=== PATIENT | female | born 1990 | race Caucasian/White ===

== ENCOUNTER 2024-03-04 09:39 | Outpatient (OUT) | payer BC, SELFPAY ==
--- NOTE | 2024-03-04 09:48 | US_ITS ---
The [address] [address] Patient Name: ROSY ROMAN MRN: [id number] date: 1990 Sex: F Assigned Patient Location: US Current Patient Location: Accession/Order Number: [id number] Exam Date: 03/04/2024 09:50 Report Date: 03/05/2024 07:38 At the request of: NATI LOPEZ Procedure: US thyroid EXAMINATION: US thyroid HISTORY: enlargement of thyroid E04.9 COMPARISON: 02/21/2023 TECHNIQUE: Sonographic images of the thyroid gland were obtained. FINDINGS: The right thyroid lobe is mildly enlarged in size heterogeneous in echotexture measuring 5.7 x 2.0 x 1.8 cm. Single focal nodule. The thyroid isthmus is thickened measuring up to 6.9 mm. No focal nodule. The left thyroid lobe is mildly enlarged in size, heterogeneous echotexture measuring 5.8 x 2.0 x 1.6 cm. 2 focal nodules. The 2 most suspicious nodules: Nodule 1: Right thyroid lobe. 1.6 x 1.2 x 1.4 cm. Solid, hypoechoic, tall, smooth margins, no calcifications. TR 4 Nodule 2: Left thyroid lobe. 1.7 x 1.0 x 0.9 cm. Solid, hypoechoic, wide, smooth margins, no calcifications. TR 3 US/US thyroid IMPRESSION: Stable bilateral thyroid nodules TI-RADS: The [employer] TI-RADS committee's white paper recommendations for thyroid lesions classified as TR4 (moderately suspicious) are listed below: > 1.0 cm. Follow-up ultrasound in 1, 2, 3, and 5 years. > 1.5 cm. FNA. J. Am Ron Radiol 2017;14:587-595. Electronically authenticated by: JENNA ELDER Date: 03/05/2024 07:38
== END 2024-03-04 09:40 | disposition home or self-care (01) ==
LOC: US 09:44
PROVIDERS: PCP Nurse Practitioner; Visit Provider Nurse Practitioner
DX: E04.9 Nontoxic goiter, unspecified (principal); E04.1 Nontoxic single thyroid nodule
CPT/HCPCS: 76536

== ENCOUNTER 2024-12-17 09:00 | Outpatient (OUT) | payer BC, SELFPAY ==
--- OUTSIDE RECORDS SUMMARY | 2024-12-17 09:16 | XMS_ITS | CCD ---
Author Organization [facility] Team Providers Care Dye Colorist Formulator Name Role Phone MORIS ROCHA Admitting Unavailable MORIS ROCHA Attending Unavailable MORIS ROCHA Primary Care Unavailable MORIS ROCHA Consulting Unavailable DR ARETHA STAPLES Consulting Unavailable Pedro Pablo Lara MD Primary Care Provider Aj SIGNAL INTEGRITY ENGINEER, Ale Unavailable ALE ROCHA Attending Unavailable ALE ROCHA Attending Unavailable Allergies Allergy Classification Reported Allergen(s) Allergy Type Date of Onset Reaction(s) Facility (1 source) Penicillins Drug allergy (disorder) [facility] Repository (3 sources) Penicillins Drug Allergy 10-10-2023 Unknown [facility] Medications Current Medications Medication Drug Class(es) Dates Sig (Normalized) Sig (Original) Tirzepatide-Weight Management (Zepbound) 2.5 MG/0.5ML solution auto-injector (4 sources) Start: 12-11-2024 End: 01-08-2025 Tirzepatide-Weight Management (Zepbound) 2.5 MG/0.5ML solution auto-injector Indications: Morbid (severe) obesity due to excess calories (CMS/HCC) , BMI 45.0-49.9, adult (CMS/HCC) Inject 2.5 mg under the skin every 7 (seven) days for 28 days 2 mL 12/11/2024 01/08/2025 Active End: 12-11-2024 Tirzepatide-Weight Managemen t (Zepbound) 2.5 MG/0.5ML solution auto-injector Inject 2.5 mg under the skin every 7 (seven) days 12/11/2024 Discontinued (Reorder) Completed/Discontinued Medications Medication Drug Class(es) Dates Sig (Normalized) Sig (Original) ferrous sulfate 325 mg delayed release oral tablet (3 sources) End: 12-11-2024 take 1 tablet by mouth in the morning ferrous sulfate 325 (65 Fe) MG EC tablet Take 1 tablet by mouth in the morning and 1 tablet before bedtime. Do not crush, chew, or split. . 12/11/2024 Discontinued (Therapy completed) Wegovy 2.4 MG/0.75ML solution auto-injector (2 sources) Start: 06-02-2024 End: 12-11-2024 Wegovy 2.4 MG/0.75ML solution auto-injector Inject 2.4 mg as directed every 7 (seven) days 06/02/2024 12/11/2024 Discontinued (Therapy completed) Problems Active Problems Problem Classification Problem Date Documented Da te Episodic/Chronic Anxiety disorders (3 sources) Mixed anxiety and depressive disorder; Translations: [Anxiety disorder, unspecified] Onset: 10-11-2023 10-11-2023 Chronic Deficiency and other anemia (1 source) Iron deficiency anemia, unspecified; Translations: [IRON DEFICIENCY ANEMIA UNSPECIFIED] Onset: 02-26-2023 Episodic Deficiency and other anemia (5 sources) Iron deficiency anemia; Translations: [Iron deficiency anemia, unspecified] Onset: 2024 2024 Episodic Diabetes mellitus without complication (9 sources) Prediabetes; Translations: [Prediabetes] Onset: 02-21-2023 Episodic Menstrual disorders (6 sources) Break-through bleeding; Translations: [Excessive and frequent menstruation with irregular cycle] Onset: 10-11-2023 10-11-2023 Chronic Other female genital disorders (3 sources) Abnormal uterine bleeding; Translations: [Abnormal uterine and vaginal bleeding, unspecified] Onset: 10-11-2023 10-11-2023 Chronic Other nutritional; endocrine; and metabolic disorders (1 source) Morbid (severe) obesity due to excess calories; Translations: [MORBID SEVERE OBES D/T EXCESS KYLE] Onset: 02-26-2023 Chronic Other nutritional; endocrine; and metabolic disorders (1 source) Body mass index (BMI) 40.0-44.9, adult; Translations: [BODY MASS INDEX BMI 40.0-44.9 ADULT] Onset: 02-26-2023 Chronic Other nutritional; endocrine; and metabolic disorders (14 sources) Body mass index 40+ - severely obese; Translations: [Morbid (severe) obesity due to excess calories] Onset: 10-11-2023 Resolved: 12-11-2024 10-11-2023 Chronic Other nutritional; endocrine; and metabolic disorders (7 sources) Obesity caused by energy imbalance; Translations: [Morbid (severe) obesity due to excess calories] Onset: 06-06-2024 06-06-2024 Chronic Other nutritional; endocrine; and metabolic disorders (1 source) Abnormal weight gain; Translations: [ABNORMAL WEIGHT GAIN] Onset: 02-26-2023 Episodic Other screening for suspected conditions (not mental disorders or infectious disease) (3 sources) Endometrium thickened; Translations: [Abnormal findings on diagnostic imaging of other specified body structures] Onset: 10-11-2023 10-11-2023 Chronic Thyroid disorders (11 sources) Nontoxic single thyroid nodule; Translations: [Goiter] Onset: 02-26-2023 10-11-2023 Chronic Past or Other Problems Problem Classification Problem Date Documented Da te Episodic/Chronic Deficiency and other anemia (3 sources) Anemia; Translations: [Anemia, unspecified] Onset: 10-11-2023 Resolved: 2024 2024 Episodic Essential hypertension (4 sources) Essential (primary) hypertension; Translations: [Hypertensive disorder] Onset: 02-26-2023 Resolved: 2024 2024 Chronic Other nutritional; endocrine; and metabolic disorders (3 sources) Abnormal weight gain; Translations: [Abnormal weight gain] Onset: 10-11-2023 10-11-2023 Episodic Ovarian cyst (6 sources) Complex cyst of left ovary; Translations: [Other ovarian cyst, left side] Onset: 10-11-2023 10-11-2023 Episodic Results Test Name Value Interpretation Reference Range Facil ity CBC AUTO DIFFon 02-21-2023 BASO # 0.0 103/ul Normal 0.0-0.1 [facility] Comment on above: Performed By: #### C BC #### [facility] [address] [address] [address] Lynne Ospina Basophils/100 WBC (Bld) 0.3 % Normal 0.2-2.0 [facility] Comment on above: Performed By: #### C BC #### [facility] [address] [address] [address] Lynne Ospina EO # 0.2 103/ul Normal 0.0-0.7 [facility] Comment on above: Performed By: #### C BC #### [facility] [address] [place] [address] Dr. Lynne Ospina Eosinophils/100 WBC (Bld) 2.0 % Normal 0.9-7.0 [facility] Comment on above: Performed By: #### C BC #### [facility] [address] [place] [address] Dr. Lynne Ospina Erythrocyte distribution width (RBC) [Ratio] 17.0 % Critically high 11.0-15.0 [facility] Comment on above: Performed By: #### C BC #### [facility] [address] [place] [address] Dr. Lynne Ospina Hematocrit (Bld) [Volume fraction] 38.5 % Normal 36.0-48.0 [facility] Comment on above: Performed By: #### C BC #### [facility] [address] [place] [address] Dr. Lynne Ospina Hemoglobin (Bld) [Mass/Vol] 11.7 g/dL Critically low 12.0-16.0 [facility] Comment on above: Performed By: #### C BC #### [facility] [address] [place] [address] Dr. Lynne Ospina IG # 0.04 10e3/ul Critically high 0.00-0.03 [facility] Comment on above: Performed By: #### C BC #### [facility] [address] [place] [address] Dr. Lynne Ospina IG % 0.4 % Normal 0.0-0.5 [facility] Comment on above: Performed By: #### C BC #### [facility] [address] [place] [address] Dr. Lynne Ospina LYMPH # 2.6 103/ul Normal 1.2-3.8 [facility] Comment on above: Performed By: #### C BC #### [facility] [address] [place] [address] Dr. Lynne Ospina Lymphocytes/100 WBC (Bld) 26.7 % Normal 20.5-60.0 [facility] Comment on above: Performed By: #### C BC #### [facility] [address] [place] [address] Dr. Lynne Ospina MANUAL DIFF REQ NO Normal [facility] Comment on above: Performed By: #### C BC #### [facility] [address] [place] [address] Dr. Lynne Ospina MCH (RBC) [Entitic mass] 23.0 pg Critically low 26.7-34.0 [facility] Comment on above: Performed By: #### C BC #### [facility] [address] [place] [address] Dr. Lynne Ospina MCHC (RBC) [Mass/Vol] 30.4 g/dL Normal 29.9-35.2 [facility] Comment on above: Performed By: #### C BC #### [facility] [address] [place] [address] Dr. Lynne Ospina MCV (RBC) [Entitic vol] 75.6 fL Critically low 81.0-99.0 [facility] Comment on above: Performed By: #### C BC #### [facility] [address] [place] [address] Dr. Lynne Ospina MONO # 0.6 103/ul Normal 0.3-0.8 [facility] Comment on above: Performed By: #### C BC #### [facility] [address] [place] [address] Dr. Lynne Ospina Monocytes/100 WBC (Bld) 6.6 % Normal 1.7-12.0 [facility] Comment on above: Performed By: #### C BC #### [facility] [address] [place] [address] Dr. Lynne Ospina NEUT # 6.2 103/ul Normal 1.4-6.5 [facility] Comment on above: Performed By: #### C BC #### [facility] [address] [address] [address] Lynne Ospina Neutrophils/100 WBC (Bld) 64.0 % Normal 43.0-75.0 [facility] Comment on above: Performed By: #### C BC #### [facility] [address] [address] [address] Lynne Ospina PLT 104 103/ul Critically low 150-450 [facility] Comment on above: Performed By: #### C BC #### [facility] [address] [address] [address] Lynne Ospina RBC 5.09 106/ul Normal 4.20-5.40 [facility] Comment on above: Performed By: #### C BC #### [facility] [address] [place] [address] Dr. Lynne Ospina WBC 9.7 103/ul Normal 4.0-11.0 [facility] Comment on above: Performed By: #### C BC #### [facility] [address] [place] [address] Dr. Lynne Ospina FERRITINon 02-21-2023 Ferritin [Mass/Vol] 18.0 ng/mL Normal 6.2-137.0 [facility] Comment on above: Performed By: #### I MEDINA ISLAS, FT4 #### [facility] [address] [place] [address] Dr. Lynne Ospina FREE T4on 02-21-2023 Free T4 [Mass/Vol] 0.86 ng/dL Normal 0.76-1.46 [facility] Comment on above: Performed By: #### I MEDINA ISLAS FT4 #### [facility] [address] [place] [address] Dr. Lynne Ospina GLYCOHEMOGLOBIN A1Con 2022 ADA RECOMMENDATION SEE BELOW Normal [facility] Comment on above: Result Comment: ADA RECOMMENDED LIMIT 4.0 - 6.0 ADA THERAPEUTIC TARGET < 7.0 ACTION SUGGESTED > 7.0 Performed By: #### A 1C #### [facility] [address] [place] [address] Dr. Lynne Ospina Glucose [Mass/Vol] 108 mg/dL Normal [facility] Comment on above: Performed By: #### A 1C #### [facility] [address] [place] [address] Dr. Lynne Ospina HbA1c (Bld) [Mass fraction] 5.4 % Normal 4.5-6.2 [facility] Comment on above: Performed By: #### A 1C #### [facility] [address] [place] [address] Dr. Lynne Ospina IRONon 02-21-2023 Iron [Mass/Vol] 22.0 ug/dL Critically low 50.0-170.0 [facility] Comment on above: Performed By: #### I MEDINA ISLAS, FT4 #### [facility] [address] [place] [address] Dr. Lynne Ospina LIPID PROFILEon 02-21-2023 CHOL-HDL RATIO NORM SEE BELOW Normal [facility] Comment on above: Result Comment: 3.3 - 4.4 LOW RISK 4.4 - 7.1 AVERAGE RISK 7.1 - 11.0 MODERATE RISK >11.0 HIGH RISK Performed By: #### C MP, LIPID, TSH #### [facility] [address] [place] [address] Dr. Lynne Ospina Cholesterol [Mass/Vol] 200 mg/dL Normal <=200 [facility] Comment on above: Performed By: #### C MP, LIPID, TSH #### [facility] [address] [place] [address] Dr. Lynne Ospina Cholesterol in HDL [Mass/Vol] 43 mg/dL Normal 40-60 [facility] Comment on above: Performed By: #### C MP, LIPID, TSH #### [facility] [address] [place] [address] Dr. Lynne Ospina Cholesterol in LDL [Mass/Vol] 137.4 mg/dL Normal [facility] Comment on above: Performed By: #### C MP, LIPID, TSH #### [facility] [address] [place] [address] Dr. Lynne Ospina Cholesterol.total/Cho lesterol in HDL [Mass ratio] 4.7 {ratio} Normal [facility] Comment on above: Performed By: #### C MP, LIPID, TSH #### [facility] [address] [address] [address] Lynne Ospina HDL NORMAL > or = 60 mg/dl - LOW CARDIOVASCULAR RISK <40 mg/dl - HIGH CARDIOVASCULAR RISK Normal [facility] Comment on above: Performed By: #### C MP, LIPID, TSH #### [facility] [address] [address] [address] Lynne Ospina LDL CALC NORMAL SEE BELOW Normal [facility] Comment on above: Result Comment: <100 mg/dl OPTIMAL 100 - 129 mg/dl NEAR OR ABOVE OPTIMAL 130 - 159 mg/dl BORDERLINE HIGH 160 - 189 mg/dl HIGH >190 mg/dl VERY HIGH Performed By: #### C MP, LIPID, TSH #### [facility] [address] [address] [address] Lynne Ospina Triglyceride [Mass/Vol] 98 mg/dL Normal <=150 [facility] Comment on above: Performed By: #### C MP, LIPID, TSH #### [facility] [address] [address] [address] Lynne Ospina VLDL CALC 19.6 mg/dL Normal [facility] Comment on above: Performed By: #### C MP, LIPID, TSH #### [facility] [address] [address] [address] Lynne Ospina PROF 14(COMP METB)on 023 Albumin [Mass/Vol] 3.3 g/dL Critically low 3.4-5.0 [facility] Comment on above: Performed By: #### C MP, LIPID, TSH #### [facility] [address] [address] [address] Lynne Ospina Albumin/Globulin [Mass ratio] 0.7 {ratio} Normal [facility] Comment on above: Performed By: #### C MP, LIPID, TSH #### [facility] [address] [address] [address] Lynne Ospina ALP [Catalytic activity/Vol] 76 U/L Normal 46-116 [facility] Comment on above: Performed By: #### C MP, LIPID, TSH #### [facility] [address] [address] [address] Lynne Ospina ALT [Catalytic activity/Vol] 27 U/L Normal 14-59 [facility] Comment on above: Performed By: #### C MP, LIPID, TSH #### [facility] [address] [address] [address] Lynne Ospina Anion gap [Moles/Vol] 10.6 mmol/L Normal [facility] Comment on above: Performed By: #### C MP, LIPID, TSH #### [facility] [address] [address] [address] Lynne Ospina AST [Catalytic activity/Vol] 9 U/L Critically low 15-37 [facility] Comment on above: Performed By: #### C MP, LIPID, TSH #### [facility] [address] [address] [address] Lynne Ospina Bilirubin [Mass/Vol] 0.3 mg/dL Normal 0.2-1.0 [facility] Comment on above: Performed By: #### C MP, LIPID, TSH #### [facility] [address] [address] [address] Lynne Ospina Calcium [Mass/Vol] 9.1 mg/dL Normal 8.5-10.1 [facility] Comment on above: Performed By: #### C MP, LIPID, TSH #### [facility] [address] [address] [address] Lynne Ospina Chloride [Moles/Vol] 103 mmol/L Normal 98-107 [facility] Comment on above: Performed By: #### C MP, LIPID, TSH #### [facility] [address] [address] [address] Lynne Ospina CO2 [Moles/Vol] 27.0 mmol/L Normal 21.0-32.0 [facility] Comment on above: Performed By: #### C MP, LIPID, TSH #### [facility] [address] [address] [address] Lynne Ospina Creatinine [Mass/Vol] 0.79 mg/dL Normal 0.55-1.02 [facility] Comment on above: Performed By: #### C MP, LIPID, TSH #### [facility] [address] [place] [address] Dr. Lynne Ospina EGFR-AF UZBEK >60 Normal >=60 [facility] Comment on above: Performed By: #### C MP, LIPID, TSH #### [facility] [address] [address] [address] Lynne Ospina EGFR-NON AF UZBEK >60 Normal >=60 [facility] Comment on above: Performed By: #### C MP, LIPID, TSH #### [facility] [address] [place] [address] Dr. Lynne Ospina Globulin (S) [Mass/Vol] 4.6 g/dL Normal [facility] Comment on above: Performed By: #### C MP, LIPID, TSH #### [facility] [address] [place] [address] Dr. Lynne Ospina Glucose [Mass/Vol] 102 mg/dL Normal 74-106 [facility] Comment on above: Performed By: #### C MP, LIPID, TSH #### [facility] [address] [place] [address] Dr. Lynne Ospina Potassium [Moles/Vol] 4.6 mmol/L Normal 3.5-5.1 [facility] Comment on above: Performed By: #### C MP, LIPID, TSH #### [facility] [address] [place] [address] Dr. Lynne Ospina Protein [Mass/Vol] 7.9 g/dL Normal 6.4-8.2 [facility] Comment on above: Performed By: #### C MP, LIPID, TSH #### [facility] [address] [place] [address] Dr. Lynne Ospina Sodium [Moles/Vol] 136 mmol/L Normal 136-145 [facility] Comment on above: Performed By: #### C MP, LIPID, TSH #### [facility] [address] [place] [address] Dr. Lynne Ospina Urea nitrogen [Mass/Vol] 10.0 mg/dL Normal 7.0-18.0 [facility] Comment on above: Performed By: #### C MP, LIPID, TSH #### [facility] [address] [place] [address] Dr. Lynne Ospina Urea nitrogen/Creatinine [Mass ratio] 12.7 mg/mg Normal [facility] Comment on above: Performed By: #### C MP, LIPID, TSH #### [facility] [address] [address] [address] Lynne Ospina TSHon 02-21-2023 TSH 1.370 uIU/mL Normal 0.358-3.740 [facility] Comment on above: Performed By: #### C MP, LIPID, TSH #### [facility] [address] [place] [address] Dr. Lynne Ospina UA RANDOM W/MICROSCOPICon BACTERIA TRACE Abnormal NONE SEEN [facility] Comment on above: Performed By: #### U AMIC #### [facility] [address] [place] [address] Dr. Lynne Ospina Bilirubin Ql (U) Negative Normal NEGATIVE [facility] Comment on above: Performed By: #### U AMIC #### [facility] [address] [place] [address] Dr. Lynne Ospina CAST NONE SEEN Normal NONE SEEN [facility] Comment on above: Performed By: #### U AMIC #### [facility] [address] [place] [address] Dr. Lynne Ospina Clarity (U) CLEAR Normal CLEAR [facility] Comment on above: Performed By: #### U AMIC #### [facility] [address] [place] [address] Dr. Lynne Ospina Color (U) LT. YELLOW Normal YELLOW [facility] Comment on above: Performed By: #### U AMIC #### [facility] [address] [place] [address] Dr. Lynne Ospina Crystals LM Nom (Urine sed) NONE SEEN Normal NONE SEEN [facility] Comment on above: Performed By: #### U AMIC #### [facility] [address] [address] [address] Lynne Ospina Epithelial cells LM Ql (Urine sed) FEW Abnormal NONE SEEN /RARE [facility] Comment on above: Performed By: #### U AMIC #### [facility] [address] [address] [address] Lynne Ospina Glucose Ql (U) Negative Normal NEGATIVE The [facility] Comment on above: Performed By: #### U AMIC #### [facility] [address] [address] [address] Lynne Ospina Hemoglobin Ql (U) LARGE Abnormal NEGATIVE [facility] Comment on above: Performed By: #### U AMIC #### [facility] [address] [address] [address] Lynne Ospina Ketones Ql (U) Negative Normal NEGATIVE The [facility] Comment on above: Performed By: #### U AMIC #### [facility] [address] [address] [address] Lynne Ospina LEUKOCYTES LARGE Abnormal NEGATIVE [facility] Comment on above: Performed By: #### U AMIC #### [facility] [address] [address] [address] Lynne Ospina MUCOUS SMALL Abnormal NONE SEEN [facility] Comment on above: Performed By: #### U AMIC #### [facility] [address] [place] [address] Dr. Lynne Ospina Nitrite Ql (U) Negative Normal NEGATIVE The [facility] Comment on above: Performed By: #### U AMIC #### [facility] [address] [address] [address] Lynne Ospina pH (U) 6.5 [pH] Normal 5-9 [facility] Comment on above: Performed By: #### U AMIC #### [facility] [address] [place] [address] Dr. Lynne Ospina RBC 10-20 Abnormal 0-2 [facility] Comment on above: Performed By: #### U AMIC #### [facility] [address] [place] [address] Dr. Lynne Ospina SPEC GRAVITY 1.020 Normal 1.005-<=1.025 [facility] Comment on above: Performed By: #### U AMIC #### [facility] [address] [place] [address] Dr. Lynne Ospina UA PROTEIN Negative Normal NEGATIVE/ TRACE [facility] Comment on above: Performed By: #### U AMIC #### [facility] [address] [address] [address] Lynne Ospina Urobilinogen Qn (U) 0.2 {Konrad'U}/dL Normal 0.2 - 1. 0 [facility] Comment on above: Performed By: #### U AMIC #### [facility] [address] [place] [address] Dr. Lynne Ospina WBC 20-50 Abnormal NONE SEEN [facility] Comment on above: Performed By: #### U AMIC #### [facility] [address] [place] [address] Dr. Lynne Ospina US THYROIDon 02-21-2023 US THYROID EXAMINATION: US THYROID HISTORY: Non-toxic uninodular goiter COMPARISON: Ultrasound thyroid 12/22/2021 FINDINGS: RIGHT LOBE: Contains a 17 x 15 x 13 mm TR 4 nodule; stable. Lobe size: 5.8 x 1.8 x 1.7 cm LEFT LOBE: Contains a 6 mm TR 4 nodule. Lobe size: 5.7 x 2.0 x 1.7 cm ISTHMUS: Contains a 15 x 10 x 7 mm TR 4 nodule; stable. Thickness: 6 mm IMPRESSION: 1. Stable appearance of the thyroid gland and the multifocal TR 4 nodules. Follow-up in one year recommended. TR4 (moderately suspicious): If > 1.0 cm Follow-up ultrasound in 1, 2, 3, and 5 years. If > 1.5 cm fine needle aspiration (FNA). : Electronically authenticated by: ARETHA STAPLES Date: 2023-02-21 10:10 Normal [facility] Vital Signs Date Time Vital Sign Value Performing Clinician Louis spicer 12-11-2024 13:33-0500 Body mass index (BMI) [Ratio] 47.08 kg/m2 Ale Rocha SIGNAL INTEGRITY ENGINEER Work Phone: [facility] 12-11-2024 13:33-0500 Body temperature 98.8 [degF] Ale Chenleobardo SIGNAL INTEGRITY ENGINEER Work Phone: [facility] 12-11-2024 13:33-0500 Body weight 144.61 kg Ale Chenleobardo SIGNAL INTEGRITY ENGINEER Work Phone: [facility] 12-11-2024 13:33-0500 Diastolic blood pressure 90 mm[Hg] Ale Mayfieldkellee SIGNAL INTEGRITY ENGINEER Work Phone: [facility] 12-11-2024 13:33-0500 Heart rate 92 /min Ale Mayfieldkellee SIGNAL INTEGRITY ENGINEER Work Phone: [facility] 12-11-2024 13:33-0500 Respiratory rate 18 /min Ale Mayfieldkellee SIGNAL INTEGRITY ENGINEER Work Phone: [facility] 12-11-2024 13:33-0500 SaO2% (BldA) [Mass fraction] 98 % Ale Chenleobardo SIGNAL INTEGRITY ENGINEER Work Phone: [facility] 12-11-2024 13:33-0500 Systolic blood pressure 142 mm[Hg] Ale Mayfieldkellee SIGNAL INTEGRITY ENGINEER Work Phone: [facility] Encounters Encounter Date Encounter Type Care Provider Facility Start: 12-11-2024 End: 12-11-2024 Bamboo flowsheet Ale Aj SIGNAL INTEGRITY ENGINEER Work Phone: [facility] Start: 12-11-2024 End: 12-11-2024 Bamboo flowsheet Ale Mayfieldkellee SIGNAL INTEGRITY ENGINEER Work Phone: [facility] Start: 12-11-2024 End: 12-11-2024 Office outpatient visit 25 minutes Ale Mayfieldkellee SIGNAL INTEGRITY ENGINEER Work Phone: [facility] Comment on above: Pre-diabetes (Primar y Dx); Morbid (severe) obesity due to excess calories (CMS/HCC); Body mass index (BMI) 40.0-44.9, adult (CMS/HCC); Thyroid nodule (CMS/HCC); Iron deficiency anemia, unspecified iron deficiency anemia type; BMI 45.0-49.9, adult (CMS/HCC) Start: 12-11-2024 End: 12-11-2024 ambulatory AEL ROCHA Not Available Start: 2024 End: 2024 ambulatory ALE ROCHA Not Available Start: 02-21-2023 End: 02-22-2023 ambulatory HARDBOARD SUPERVISOR ALE ROCHA Facility:H1 Procedures Date Procedure Procedure Detail Performing Clinician Start: 05-21-2020 Microscopic observat ion [Identifier] in Cervix by Cyto stain Ale Aj SIGNAL INTEGRITY ENGINEER Work Phone: Plan of Treatment Date Care Activity Detail Author Start: 02-05-2025 Influenza vaccination Influenza Vacc ine (#1) [facility] Comment on above: Postponed from 07/07 (Patient Refused) Start: 12-11-2024 End: 12-11-2025 CBC W Auto Differential panel - Blood CBC and differential Lab Routine Iron deficiency anemia, unspecified iron deficiency anemia type Expected: 12/11/2024 (Approximate), Expires: 12/11/2025 [facility] Work Phone: Comment on above: Expected: 12/11/2024 (Approximate), Expires: 12/11/2025 Start: 12-11-2024 End: 12-11-2025 Comprehensive metabolic 2000 panel - Serum or Plasma Comprehensive metabolic panel Lab Routine Morbid (severe) obesity due to excess calories ([facility]) Pre-diabetes Iron deficiency anemia, unspecified iron deficiency anemia type Expected: 12/11/2024 (Approximate), Expires: 12/11/2025 [facility] Comment on above: Expected: 12/11/2024 (Approximate), Expires: 12/11/2025 Start: 12-11-2024 End: 12-11-2025 Ferritin [Mass/volume] in Serum or Plasma Ferritin Lab Routine Iron deficiency anemia, unspecified iron deficiency anemia type Expected: 12/11/2024 (Approximate), Expires: 12/11/2025 [facility] Comment on above: Expected: 12/11/2024 (Approximate), Expires: 12/11/2025 Start: 12-11-2024 End: 12-11-2025 Hemoglobin A1c/Hemoglobin.total in Blood Hemoglobin A1c Lab Routine Pre-diabetes Expected: 12/11/2024 (Approximate), Expires: 12/11/2025 [facility] Comment on above: Expected: 12/11/2024 (Approximate), Expires: 12/11/2025 Start: 12-11-2024 End: 12-11-2025 Iron + transferrin + TIBC Iron + transferrin + TIBC Lab Routine Iron deficiency anemia, unspecified iron deficiency anemia type Expected: 12/11/2024 (Approximate), Expires: 12/11/2025 [facility] Comment on above: Expected: 12/11/2024 (Approximate), Expires: 12/11/2025 Start: 12-11-2024 End: 12-11-2025 Lipid 1996 panel - Serum or Plasma Lipid panel Lab Routine Morbid (severe) obesity due to excess calories (CMS/HCC) Expected: 12/11/2024 (Approximate), Expires: 12/11/2025 [facility] Comment on above: Expected: 12/11/2024 (Approximate), Expires: 12/11/2025 Start: 12-11-2024 End: 12-11-2025 Thyroid peroxidase and thyroglobulin antibodies Thyroid peroxidase and thyroglobulin antibodies Lab Routine Thyroid nodule (CMS/HCC) Expected: 12/11/2024 (Approximate), Expires: 12/11/2025 [facility] Comment on above: Expected: 12/11/2024 (Approximate), Expires: 12/11/2025 Start: 12-11-2024 End: 12-11-2025 Thyrotropin [Units/volume] in Serum or Plasma TSH Lab Routine Thyroid nodule (CMS/HCC) Expected: 12/11/2024 (Approximate), Expires: 12/11/2025 [facility] Comment on above: Expected: 12/11/2024 (Approximate), Expires: 12/11/2025 Start: 12-11-2024 End: 12-11-2025 Thyroxine (T4) free [Mass/volume] in Serum or Plasma T4, free Lab Routine Thyroid nodule (CMS/HCC) Expected: 12/11/2024 (Approximate), Expires: 12/11/2025 [facility] Comment on above: Expected: 12/11/2024 (Approximate), Expires: 12/11/2025 Start: 12-11-2024 End: 12-11-2025 Urinalysis complete panel - Urine Urinalysis with reflex microscopic (clean catch) Lab Routine Iron deficiency anemia, unspecified iron deficiency anemia type Expected: 12/11/2024 (Approximate), Expires: 12/11/2025 [facility] Comment on above: Expected: 12/11/2024 (Approximate), Expires: 12/11/2025 Start: 12-11-2024 End: 12-11-2025 US Thyroid gland US thyroid Imaging Routine Thyroid nodule (CMS/HCC) Expected: 12/11/2024 (Approximate), Expires: 12/11/2025 [facility] Comment on above: Expected: 12/11/2024 (Approximate), Expires: 12/11/2025 Start: 12-11-2024 End: 12-11-2024 Patient encounter procedure 12/11/2024 1:40 PM EST Office Visit [facility] [address] [place] [address] Ale Rocha NP [address] [place] [address] Thyroid nodule (CMS/HCC) (Primary Dx); Morbid (severe) obesity due to excess calories (CMS/HCC); Body mass index (BMI) 40.0-44.9, adult (CMS/HCC); Pre-diabetes; Iron deficiency anemia, unspecified iron deficiency anemia type [facility] Comment on above: Thyroid nodule (CMS/ HCC) (Primary Dx); Morbid (severe) obesity due to excess calories (CMS/HCC); Body mass index (BMI) 40.0-44.9, adult (CMS/HCC); Pre-diabetes; Iron deficiency anemia, unspecified iron deficiency anemia type Start: 07-07-2024 Influenza vaccination Influenza Vacc ine (#1) [facility] Start: 05-21-2023 Screening for malign ant neoplasm of cervix [facility] Start: 01-14-2018 Screening for malign ant neoplasm of cervix HPV/Cotest [facility] Immunizations Immunization Date Immunization Notes Care Provider Fa cility 08-30-2007 hepatitis B vaccine, pediatric or pediatric/adolescent dosage Ale Gustavoz SIGNAL INTEGRITY ENGINEER Work Phone: [facility] 08-14-2006 hepatitis B vaccine, pediatric or pediatric/adolescent dosage Ale Aicannmarieholz SIGNAL INTEGRITY ENGINEER Work Phone: [facility] 08-14-2006 meningococcal polysaccharide (groups A, C, Y and W-135) diphtheria toxoid conjugate vaccine (MCV4P) Ale Chaparroholz SIGNAL INTEGRITY ENGINEER Work Phone: [facility] 06-05-2006 hepatitis B vaccine, pediatric or pediatric/adolescent dosage Ale Aicannmarieholz SIGNAL INTEGRITY ENGINEER Work Phone: [facility] 06-05-2006 tetanus toxoid, redu ye diphtheria toxoid, and acellular pertussis vaccine, adsorbed Ale Chaparroholz SIGNAL INTEGRITY ENGINEER Work Phone: [facility] Healthcare Payers Date Payer Category Payer [facility] er [id number] 1990 Unknown [id number] 1990 Unknown [id number] 1988 Unknown [id number] 1959 Unknown [id number] Social History Date Type Detail Facility Start: [facility]10[facility] Start: 10-10-2023 Tobacco use and exposure Smoke less tobacco non-user [facility] Start: 2024 End: 12-11-2024 Alcoholic beverage intake [facility] ([facility] Start: 2024 End: 12-11-2024 History of Social function [facility] Start: 2024 End: 12-11-2024 Tobacco use panel [facility] Start: 1990 Sex assigned at Not on file [facility] History of Present illness Narrative 12-11-2024 Ale Rocha, SIGNAL INTEGRITY ENGINEER - 12/11/2024 1:40 PM ESTLisa Aj, SIGNAL INTEGRITY ENGINEER - 12/11/2024 6:39 AM ESTLisa Aj, SIGNAL INTEGRITY ENGINEER - 12/11/2024 6:39 AM ESTLisa Aj, SIGNAL INTEGRITY ENGINEER - 12/11/2024 6:38 AM EST Note Date & Type Note Facility 12-11-2024 History of Presen t illness Narrative Images from the original note were not included. Falguni Rivera is a 34 y.o. female presents with chief complaint of No chief complaint on file. HPI: Here for a recheck: not seen over 6-9 months. In the past she has been under for treatment of anemia, and obesity. Used to be on Wegovy and did well with weight loss. Is interested in restarting her wegovy or some type of weight loss medication. Also has a hx of thyroid nodules in the past, and is needing her yearly thyroid US. Does also have hx of KIT and has had hx stressors in the past and is feeling those stressors at this time SUBJECTIVE: MEDICATIONS: Current Outpatient Medications Medication Instructions ferrous sulfate 325 (65 Fe) MG EC tablet 1 tablet, 2 times daily ALLERGIES: Allergies Allergen Reactions Penicillins Unknown REVIEW OF SYMPTOMS: Review of Systems Constitutional: Negative for appetite change, chills and fever. HENT: Negative for congestion, ear pain and sore throat. Eyes: Negative for pain, discharge, redness and visual disturbance. Respiratory: Negative for cough, shortness of breath and wheezing. Cardiovascular: Negative for chest pain, palpitations and leg swelling. Gastrointestinal: Negative for abdominal pain, blood in stool, constipation, diarrhea, nausea and vomiting. Genitourinary: Negative for difficulty urinating, dysuria and frequency. Musculoskeletal: Negative for arthralgias, back pain, joint swelling and myalgias. Skin: Negative for rash and wound. Neurological: Negative for dizziness, tremors, seizures, syncope and headaches. Psychiatric/Behavioral: Negative for behavioral problems, self-injury and suicidal ideas. The patient is nervous/anxious. Hematological: Does not bruise/bleed easily. Endocrine: Negative for polydipsia, polyphagia and polyuria. Allergic/Immunologic: Negative for environmental allergies and food allergies. PAST MEDICAL HISTORY Past Medical History: Diagnosis Date Anemia Anxiety and depression (CMS/HCC) At low risk for fall Breakthrough bleeding with IUD Complex cyst of left ovary Complex cyst of right ovary Depression (CMS/HCC) Enlarged thyroid (CMS/HCC) Hypertension (CMS/HCC) Influenza vaccination declined Iron deficiency anemia, unspecified iron deficiency anemia type 2024 Irregular menses Morbid obesity with body mass index (BMI) of 40.0 to 49.9 (CMS/HCC) Positive depression screening Prediabetes Thickened endometrium Thyroid nodule (CMS/HCC) UTI symptoms Weight loss counseling, encounter for Past Surgical History: Procedure Laterality Date SECTION, LOW TRANSVERSE 2015 DILATION AND CURETTAGE OF UTERUS 05/29/2020 family history includes Arthritis in her mother; Diabetes in her father; Hyperlipidemia in her father; Seizures in her mother. OBJECTIVE: Visit Vitals BP 142/90 (BP Location: Left arm, Patient Position: Sitting, BP Cuff Size: Large adult) Pulse 92 Temp 98.8 F (Temporal) Resp 18 Wt 318 lb 12.8 oz SpO2 98% BMI 47.08 kg/m Smoking Status Never BSA 2.66 m Physical Exam Vitals and nursing note reviewed. Constitutional: General: She is not in acute distress. Appearance: Normal appearance. HENT: Head: Normocephalic and atraumatic. Right Ear: External ear normal. Left Ear: External ear normal. Nose: Nose normal. Mouth/Throat: Mouth: Mucous membranes are moist. Eyes: Extraocular Movements: Extraocular movements intact. Conjunctiva/sclera: Conjunctivae normal. Neck: Vascular: No carotid bruit. Cardiovascular: Rate and Rhythm: Normal rate and regular rhythm. Pulses: Normal pulses. Heart sounds: Normal heart sounds. Pulmonary: Effort: Pulmonary effort is normal. Breath sounds: Normal breath sounds. No wheezing or rales. Abdominal: General: Bowel sounds are normal. There is no distension. Palpations: Abdomen is soft. There is no mass. Tenderness: There is no abdominal tenderness. Musculoskeletal: General: Normal range of motion. Cervical back: Normal range of motion and neck supple. Right lower leg: No edema. Left lower leg: No edema. Lymphadenopathy: Cervical: No cervical adenopathy. Skin: General: Skin is warm and dry. Capillary Refill: Capillary refill takes 2 to 3 seconds. Findings: No rash. Neurological: General: No focal deficit present. Mental Status: She is alert and oriented to person, place, and time. Psychiatric: Mood and Affect: Mood normal. Behavior: Behavior normal. Thought Content: Thought content normal. Judgment: Judgment normal. ASSESSMENT AND PLAN: No follow-ups on file. Problem List Items Addressed This Visit Pre-diabetes Check labs Relevant Orders Comprehensive metabolic panel Hemoglobin A1c Thyroid nodule (CMS/HCC) - Primary Due for recheck of thyroid nodule Check labs as well Relevant Orders TSH T4, free Thyroid peroxidase and thyroglobulin antibodies US thyroid Iron deficiency anemia, unspecified iron deficiency anemia type Check labs Relevant Orders CBC and differential Comprehensive metabolic panel Iron + transferrin + TIBC Ferritin Urinalysis with reflex microscopic (clean catch) Morbid (severe) obesity due to excess calories (CMS/HCC) Discussed with patient their BMI (actual, verses recommended). We have also discussed lifestyle modifications: attempts to perform physical activity as chronic conditions allow, also to monitor dietary intake: increasing protein/fruits/veggies and lowering carb intake (unless contraindicated). Limit sodas, juices, and sugary drinks. Has been on wegovy in the past, and demonstrated great weight loss, no med in last 4-6 months Has gained 38 pounds since visit almost 1 year ago Trialed saxenda in the past no weight loss, wegovy did demonstrate weight loss, but also had bloating with this as well Has noted since being off of the drug caused much more food noise Would like to trial zepbound No contraindications for use Relevant Medications Tirzepatide-Weight Management (Zepbound) 2.5 MG/0.5ML solution auto-injector Other Relevant Orders Comprehensive metabolic panel Lipid panel RESOLVED: Body mass index (BMI) 40.0-44.9, adult (CMS/HCC) BMI 45.0-49.9, adult (CMS/HCC) Relevant Medications Tirzepatide-Weight Management (Zepbound) 2.5 MG/0.5ML solution auto-injector Associated Problem(s): Iron deficiency anemia, unspecified iron deficiency anemia type Check labs Associated Problem(s): Thyroid nodule (CMS/HCC) Due for recheck of thyroid nodule Check labs as well Associated Problem(s): Pre-diabetes Check labs Associated Problem(s): Morbid (severe) obesity due to excess calories (CMS/HCC) Discussed with patient their BMI (actual, verses recommended). We have also discussed lifestyle modifications: attempts to perform physical activity as chronic conditions allow, also to monitor dietary intake: increasing protein/fruits/veggies and lowering carb intake (unless contraindicated). Limit sodas, juices, and sugary drinks. Has been on wegovy in the past, and demonstrated great weight loss, no med in last 4-6 months Has gained 38 pounds since visit almost 1 year ago Trialed saxenda in the past no weight loss, wegovy did demonstrate weight loss, but also had bloating with this as well Has noted since being off of the drug caused much more food noise Would like to trial zepbound No contraindications for use documented in this encounter [facility] Instructions 12-11-2024 Patient Instructions Note Date & Type Note Facility 12-11-2024 Instructions Ale Rocha NP - 12/11/2024 1:40 PM EST Check labs Will try to start zepbound 2.5mg for 4 weeks Thyroid US documented in this encounter [facility] Evaluation note Note Date & Type Note Facility Evaluation note Diagnosis Anxiety and depression (CMS/HCC)- Primary Obesity, morbid, BMI 40.0-49.9 (CMS/HCC) Iron deficiency anemia, unspecified iron deficiency anemia type- Primary Pre-diabetes Other abnormal glucose Enlargement of thyroid (CMS/HCC) Goiter, unspecified Thyroid nodule (CMS/HCC) Nontoxic uninodular goiter Obesity, morbid, BMI 40.0-49.9 (CMS/HCC) Pre-diabetes- Primary Other abnormal glucose Morbid (severe) obesity due to excess calories (CMS/HCC) Body mass index (BMI) 40.0-44.9, adult (CMS/HCC) Thyroid nodule (CMS/HCC) Nontoxic uninodular goiter Iron deficiency anemia, unspecified iron deficiency anemia type BMI 45.0-49.9, adult (CMS/HCC) documented in this encounter [facility] Summary Purpose Family History No Family History Records FoundNo Family History Records Found Advance Directives No Advanced Directives Records FoundNo Advanced Directives Records Found Additional Source Comments INFORMATION SOURCE (unrecogn ized section and content) DATE CREATED AUTHOR 02/26/2023 [facility] DATE CREATED AUTHOR AUTHOR'S ORGANIZ ATION 12/13/2024 [facility] Special[facility] EPIC Care Teams (unrecognized sec tion and content) Dye Colorist Formulator Relationship Specialty Start Date End Date Pedro Pablo Lara MD [address] [place] [phone] PCP - General Family Medicine 04/29/24 Ale Rocha NP [address] [place] [address] Nurse Practitioner Family Medicine 04/29/24 Dye Colorist Formulator Relationship Specialty Start Date End Date Pedro Pablo Lara MD [address] [place] [phone] PCP - General Family Medicine 04/29/24 Ale Rocha NP [address] [place] [phone] Nurse Practitioner Family Medicine 04/29/24 FOR RECORDS PERTAINING TO PATIENTS WHO ARE OR HAVE BEEN ENROLLED IN A CHEMICAL DEPENDENCY/SUBSTANCEABUSE PROGRAM, SOME INFORMATION MAY BE OMITTED. This clinical summary was aggregated from multiple sources. Caution should be exercised in using it in the provision of clinical care. This summary normalizes information from multiple sources, and as a consequence, information in this document may materially change the coding, format and clinical context of patient data. In addition, data may be omitted in some cases. CLINICAL DECISIONS SHOULD BE BASED ON THE PRIMARY CLINICAL RECORDS. [employer] provides no warranty or guarantee of the accuracy or completeness of information in this document.
--- NOTE | 2024-12-17 09:21 | US_ITS ---
[address] [address] Patient Name: ROSY ROMAN MRN: [id number] date: 1990 Sex: F Assigned Patient Location: LAB Current Patient Location: LAB Accession/Order Number: [id number] Exam Date: 12/17/2024 09:22 Report Date: 12/17/2024 09:51 At the request of: NATI LOPEZ Procedure: US thyroid EXAMINATION: US thyroid HISTORY: Thyroid Nodule COMPARISON: 03/04/2024 TECHNIQUE: Sonographic images of the thyroid gland were obtained. FINDINGS: The right thyroid lobe measures 5.9 x 1.7 x 1.5 cm. Single nodule. The thyroid isthmus measures 6 mm. Single nodule. The left thyroid lobe measures 5.9 x 1.9 x 1.5 cm. Single nodule The 2 largest nodules: Nodule 1: Thyroid isthmus. 1.8 x 0.8 x 1.4 cm. Spongiform Nodule 2: Right thyroid lobe. 1.1 x 0.9 x 0.9 cm. Solid, hypoechoic, wide, smooth margins, no calcifications. TR 4. US/US thyroid IMPRESSION: 1.1 cm right thyroid TR 4 nodule TI-RADS: The [employer] TI-RADS committee's white paper recommendations for thyroid lesions classified as TR4 (moderately suspicious) are listed below: > 1.0 cm. Follow-up ultrasound in 1, 2, 3, and 5 years. > 1.5 cm. FNA. J. Am Ron Radiol 2017;14:[id number]. Electronically authenticated by: JENNA ELDER Date: 12/17/2024 09:51
[2024-12-17 09:27] LABS: Bilirubin Urine NEGATIVE (NEGATIVE); Blood Urine LARGE (NEGATIVE); Clarity Urine CLEAR (CLEAR); Glucose Urine UA NEGATIVE (NEGATIVE); Ketones Urine NEGATIVE (NEGATIVE); Leukocyte Esterase Urine SMALL (NEGATIVE); Nitrite Urine NEGATIVE (NEGATIVE); Protein Urine 100 mg/dL (NEG/TRACE); Specific Gravity Urine 1.025 (1.005-1.025); Urobilinogen Urine 0.2 EU/dL (0.2-1.0)
[2024-12-17 09:27] LABS: Basophils Absolute Auto 0.1 10^3/uL (0.0-0.1); Basophils Percent Auto 0.9 % (0.2-2.0); Eosinophils Absolute Auto 0.2 10^3/uL (0.0-0.7); Eosinophils Percent Auto 2.6 % (0.9-7.0); Hemoglobin 9.8 g/dL (12.0-16.0); Immature Granulocytes Abs Auto 0.03 10^3/uL (0.00-0.03); Immature Granulocytes Pct Auto 0.3 % (0.0-0.5); Lymphocytes Absolute Auto 2.5 10^3/uL (1.2-3.8); Lymphocytes Percent Auto 28.9 % (20.5-60.0); Mean Corpuscular HGB Conc 28.8 g/dL (29.9-35.2); Mean Corpuscular Volume 69.5 fL (81.0-99.0); Monocytes Absolute Auto 0.6 10^3/uL (0.3-0.8); Neutrophils Absolute Auto 5.2 10^3/uL (1.4-6.5); Neutrophils Percent Auto 60.3 % (43.0-75.0); Platelet Count 149 10^3/uL (150-450); Red Cell Distribution Width 17.9 % (11.0-15.0); White Blood Count 8.7 10^3/uL (4.0-11.0)
[2024-12-17 09:34] LABS: Color Urine PINK (YELLOW); Urine Microscopic Indicated YES
[2024-12-17 09:40] LABS: Bacteria Urine MODERATE #/HPF (NONE SEEN); RBC Urine 20-50 #/HPF (0-2)
[2024-12-17 09:41] LABS: Cast Seen? NONE SEEN #/LPF (NONE SEEN); Crystals Seen? None Seen #/HPF (None Seen); Mucus Urine TRACE (NONE SEEN); Squamous Epithelial Cell Urine MODERATE #/LPF (NONE/RARE)
[2024-12-17 09:54] LABS: Red Blood Count 4.89 10^6/uL (4.20-5.40)
[2024-12-17 10:15] LABS: Potassium 4.3 mmol/L (3.5-5.1); Sodium 139 mmol/L (136-145)
[2024-12-17 10:16] LABS: Anion Gap 11.2; BUN Creatinine Ratio 14.1; Carbon Dioxide 28.1 mmol/L (21.0-32.0); Chloride 104 mmol/L (98-107); Estimated GFR (African America >60 (>=60 mL/min/1.73m^2); Estimated GFR (Non-African Ame >60 (>=60 mL/min/1.73m^2); Glucose 107 mg/dL (74-106)
[2024-12-17 10:17] LABS: Alanine Aminotransferase 30 U/L (14-59); Albumin Globulin Ratio 0.8; Albumin Level 3.3 g/dL (3.4-5.0); Alkaline Phosphatase 68 U/L (46-116); Aspartate Amino Transferase 13 U/L (15-37); Bilirubin Total 0.2 mg/dL (0.2-1.0); Calcium 8.4 mg/dL (8.5-10.1); Cholesterol 199 mg/dL (<=200); Globulin 4.1 g/dL; Total Protein 7.4 g/dL (6.4-8.2); Triglycerides 68 mg/dL (<=150); VLDL CHOLESTEROL 13.6 mg/dL
[2024-12-17 10:18] LABS: Chol HDL Ratio 3.8; HDL Cholesterol 52 mg/dL (40-60); Thyroid Stimulating Hormone 1.487 uIU/mL (0.358-3.740)
[2024-12-17 10:44] LABS: Estimated Average Glucose 114 mg/dL; Glycohemoglobin A1C 5.6 % (4.5-6.2)
[2024-12-17 10:47] LABS: Percent Iron Saturation 2.7 %
[2024-12-17 11:17] LABS: Free T4 1.07 ng/dL (0.76-1.46)
[2024-12-18 06:07] LABS: Transferrin 424 mg/dL (192-364)
[2024-12-18 17:09] LABS: Thyroglobulin Antibody <1.0 IU/mL (0.0-0.9); Thyroid Peroxidase (TPO) Ab 10 IU/mL (0-34)
== END 2024-12-17 09:01 | disposition home or self-care (01) ==
LOC: LAB 09:01
PROVIDERS: PCP Nurse Practitioner; Visit Provider Nurse Practitioner
DX: E04.1 Nontoxic single thyroid nodule (principal); D50.9 Iron deficiency anemia, unspecified; E66.01 Morbid (severe) obesity due to excess calories; R73.03 Prediabetes
CPT/HCPCS: 36415; 76536; 80053; 80061; 81001; 82728; 83036; 83540; 83550; 84439; 84443; 84466; 85025; 86376; 86800